=== PATIENT | female | born 1995 | race African-American/Black ===

== ENCOUNTER 2020-01-31 17:40 | Inpatient (IN) | payer BC ==
[~2020-01-31] VITALS: Ht 175.3 cm; Wt 99.7 kg
[2020-01-31] MEDS ORDERED: MICROGESTIN 1.51 TAB PO (18:55)
[2020-01-31 20:16] VITALS: PULSE 73; TEMP 97.9
[2020-01-31 23:44] VITALS: BP 189/101; PULSE 66; TEMP 97.5
[2020-01-31 23:59] VITALS: BP 190/110
[2020-02-01 00:45] VITALS: BP 151/85; PULSE 89
[2020-02-01 03:47] VITALS: BP 164/100; PULSE 80; TEMP 98.9
[2020-02-01 07:34] LABS: HEMATOCRIT 38.5 % (37.0-47.0); HEMOGLOBIN 11.8 g/dl (12.5-16.0); MEAN CELL VOLUME 80 fl (80.0-100.0); MEAN CORPUSCULAR HEMOGLOBIN 25 pg (27.0-31.0); MEAN CORPUSCULAR HGB CONC 31 g/dl (33.0-37.0); MEAN PLATELET VOLUME 10.5 fl (7.4-10.4); PLATELET COUNT 454 K/mm3 (130-400); RED BLOOD COUNT 4.79 M/mm3 (4.10-5.30); REDCELL DISTRIBUTION WIDTH-CV 18.1 % (11.5-14.5)
[2020-02-01 07:40] LABS: ALBUMIN 4.3 gm/dL (3.5-5.0); BILIRUBIN,TOTAL 0.9 mg/dL (0.0-1.0); CALCIUM 9.4 mg/dL (8.4-10.2); CREATININE, serum 0.68 (0.52-1.25); POTASSIUM 3.3 mmol/L (3.4-5.0); TOTAL PROTEIN 8.3 gm/dL (6.4-8.2)
[2020-02-01 07:50] VITALS: BP 178/96; PULSE 84; TEMP 98.5
[2020-02-01 08:33] LABS: BAND 1 % (0-10); LYMPHOCYTE 3 % (20.0-51.0); NEUTROPHILS 90 % (42.0-75.2)
[2020-02-01 08:34] LABS: PLATELET ESTIMATE INCREASED (NORMAL)
[2020-02-01 11:12] VITALS: BP 165/91; PULSE 82; TEMP 97.8
[2020-02-01 16:25] VITALS: BP 168/95; PULSE 85; TEMP 98.4
[2020-02-01 19:33] VITALS: BP 184/104; PULSE 85; TEMP 98.4
[2020-02-02 01:05] VITALS: BP 152/92; PULSE 96; TEMP 98.6
[2020-02-02 04:26] VITALS: BP 155/89; PULSE 92; TEMP 98.6
[2020-02-02 07:11] LABS: BASO % 0.1 % (0.0-2.0); EOS % 0.1 % (0-4.0); GRAN # 14.2 (1.4-6.5); GRAN % 86.5 % (42.2-75.2); HEMOGLOBIN 10.9 g/dl (12.5-16.0); LYMPH % 6.4 % (20.0-51.0); MEAN CELL VOLUME 81 fl (80.0-100.0); MEAN CORPUSCULAR HEMOGLOBIN 24 pg (27.0-31.0); MEAN CORPUSCULAR HGB CONC 30 g/dl (33.0-37.0); MEAN PLATELET VOLUME 10.9 fl (7.4-10.4); MONO # 1.1 (0.1-0.6); MONO % 6.5 % (1.7-9.3); PLATELET COUNT 400 K/mm3 (130-400); REDCELL DISTRIBUTION WIDTH-CV 18.4 % (11.5-14.5)
[2020-02-02 07:18] LABS: HEMATOCRIT 36.4 % (37.0-47.0)
[2020-02-02 07:23] VITALS: BP 167/100; PULSE 85; TEMP 98.6
[2020-02-02 07:28] LABS: ALBUMIN 3.9 gm/dL (3.5-5.0); BILIRUBIN,TOTAL 0.8 mg/dL (0.0-1.0); CALCIUM 8.8 mg/dL (8.4-10.2); CREATININE, serum 0.64 (0.52-1.25); POTASSIUM 3.6 mmol/L (3.4-5.0); TOTAL PROTEIN 7.6 gm/dL (6.4-8.2)
[2020-02-02 11:46] VITALS: BP 177/104; PULSE 84; TEMP 98.7
[2020-02-02 15:40] VITALS: BP 181/98; PULSE 92; TEMP 99.5
[2020-02-02 20:45] VITALS: BP 144/72; PULSE 100; TEMP 98.6
[2020-02-03 00:42] VITALS: BP 138/81; PULSE 96; TEMP 98.6
[2020-02-03 04:09] VITALS: BP 163/99; PULSE 85; TEMP 98.7
[2020-02-03 06:22] LABS: BASO % 0.2 % (0.0-2.0); EOS # 0.1 (0.0-0.7); EOS % 0.5 % (0-4.0); GRAN # 9.9 (1.4-6.5); GRAN % 79.3 % (42.2-75.2); HEMOGLOBIN 10.5 g/dl (12.5-16.0); LYMPH # 1.3 (1.2-3.4); LYMPH % 10.2 % (20.0-51.0); MEAN CELL VOLUME 81 fl (80.0-100.0); MEAN CORPUSCULAR HEMOGLOBIN 25 pg (27.0-31.0); MEAN CORPUSCULAR HGB CONC 30 g/dl (33.0-37.0); MONO # 1.2 (0.1-0.6); MONO % 9.3 % (1.7-9.3); PLATELET COUNT 373 K/mm3 (130-400); RED BLOOD COUNT 4.27 M/mm3 (4.10-5.30); REDCELL DISTRIBUTION WIDTH-CV 18.6 % (11.5-14.5)
[2020-02-03 06:33] LABS: ALBUMIN 3.5 gm/dL (3.5-5.0); BILIRUBIN,TOTAL 0.6 mg/dL (0.0-1.0); CALCIUM 8.7 mg/dL (8.4-10.2); CREATININE, serum 0.6 (0.52-1.25); POTASSIUM 3.5 mmol/L (3.4-5.0); TOTAL PROTEIN 7.4 gm/dL (6.4-8.2)
[2020-02-03 06:42] LABS: HEMATOCRIT 34.7 % (37.0-47.0)
[2020-02-03 07:34] VITALS: BP 159/103; PULSE 90; TEMP 99.1
[2020-02-03 11:13] VITALS: BP 161/101; PULSE 75; TEMP 99.2
[2020-02-03 15:54] VITALS: BP 171/108; PULSE 83; TEMP 98.7
[2020-02-03 20:00] VITALS: BP 166/91; PULSE 85; TEMP 98.9
[2020-02-04] VITALS (7 sets, daily range): BP systolic 140–165; BP diastolic 84–102; PULSE 80–93; TEMP 98.3–99.2
[2020-02-04 07:04] LABS: ALBUMIN 3.5 gm/dL (3.5-5.0); BILIRUBIN,TOTAL 0.5 mg/dL (0.0-1.0); CALCIUM 8.7 mg/dL (8.4-10.2); CREATININE, serum 0.62 (0.52-1.25); POTASSIUM 3.2 mmol/L (3.4-5.0); TOTAL PROTEIN 7.4 gm/dL (6.4-8.2)
[2020-02-04 07:06] LABS: BASO % 0.3 % (0.0-2.0); EOS # 0.1 (0.0-0.7); EOS % 1.4 % (0-4.0); GRAN # 7.1 (1.4-6.5); GRAN % 75.2 % (42.2-75.2); HEMOGLOBIN 10.2 g/dl (12.5-16.0); LYMPH # 1.4 (1.2-3.4); LYMPH % 14.5 % (20.0-51.0); MEAN CELL VOLUME 82 fl (80.0-100.0); MEAN CORPUSCULAR HEMOGLOBIN 25 pg (27.0-31.0); MEAN CORPUSCULAR HGB CONC 30 g/dl (33.0-37.0); MEAN PLATELET VOLUME 10.9 fl (7.4-10.4); MONO # 0.8 (0.1-0.6); MONO % 8.4 % (1.7-9.3); PLATELET COUNT 336 K/mm3 (130-400); RED BLOOD COUNT 4.13 M/mm3 (4.10-5.30); REDCELL DISTRIBUTION WIDTH-CV 18.6 % (11.5-14.5)
[2020-02-04 07:27] LABS: HEMATOCRIT 33.8 % (37.0-47.0)
[2020-02-04] MEDS ORDERED: NORCO 325 MG-51 TAB PO (12:52)
[2020-02-04] MEDS ORDERED: MOTRIN 600600 MG/TAB PO (12:52)
[2020-02-04] MEDS ORDERED: AMOXICILLIN 8751 TAB PO (12:52)
[2020-02-05 00:44] VITALS: BP 149/88; PULSE 73; TEMP 98.3
[2020-02-05 04:24] VITALS: BP 155/95; PULSE 69; TEMP 98.6
[2020-02-05 07:35] VITALS: BP 140/85; PULSE 73; TEMP 98.1
[2020-02-05 11:44] VITALS: BP 148/86; PULSE 85; TEMP 98.1
[2020-02-05] MEDS ORDERED: ZESTRIL 20MG TA20 MG PO (13:43)
[2020-02-05] MEDS ORDERED: NORVASC 10MG10 MG PO (13:43)
[2020-02-05 15:54] VITALS: BP 151/79; PULSE 80; TEMP 98
== END 2020-02-05 19:12 | disposition home or self-care (01) | DRG 419 ==
LOC: MEDICAL 17:40 → SURG 18:26
PROVIDERS: Internal Medicine; Physician Assistant; Surgery; ADMIT Surgery
PROC: BF131ZZ Fluoroscopy of Gallbladder and Bile Ducts using Low Osmolar Contrast (ICD-10-PCS; 2020-02-04)
PROC: 0FT44ZZ Resection of Gallbladder, Percutaneous Endoscopic Approach (ICD-10-PCS; principal; 2020-02-04 09:15)
DX: K85.10 Biliary acute pancreatitis without necrosis or infection (principal); E87.6 Hypokalemia; F17.210 Nicotine dependence, cigarettes, uncomplicated; K59.00 Constipation, unspecified; K81.1 Chronic cholecystitis; I10 Essential (primary) hypertension
CPT/HCPCS: 99223; 99231-AI; 99232-AI; A4216; J0360; J0690; J0696; J1100; J1170; J1610; J1885; J2270; J2405; J2550; J2704; J3480; J7030; J7120; Q9967